=== PATIENT | male | born 2000 | race Hispanic/Latino ===

== ENCOUNTER 2024-05-14 04:51 | Emergency (ER) | payer BC ==
[~2024-05-14] VITALS: Ht 177.8 cm; Wt 74.8 kg
[2024-05-14 04:53] VITALS: BP 137/76; PULSE 102; RESP 18; TEMP 99.9; O2SAT 97
[2024-05-14 05:26] LABS: BASOPHIL % 0.4 % (0.2-1.2); EOSINOPHIL # 0.1 10^3/uL (0.0-0.2); EOSINOPHIL % 0.9 % (0.0-5.0); HEMATOCRIT(ML) 46.4 % (37.0-53.0); HEMOGLOBIN 15.8 g/dL (13.9-16.3); LYMPHOCYTES # 0.67 10^3/uL1 (1.0-4.8); MEAN CORP HGB 30.8 pg (26-34); MEAN CORP HGB CONCENTRATION 34.1 g/dL (33-36.5); MEAN CORP VOLUME 90.4 fL (78-100); MONOCYTES # 0.5 10^3/uL (0.3-0.8); MONOCYTES % 7.1 % (5.0-12.0); NEUTROPHIL # 6.2 10^3/uL (1.8-7.7); NEUTROPHILS % 82.5 % (41.0-85.0); PLATELET COUNT 212 10^3/uL (150-400); RED BLOOD CELL 5.13 10^6/uL (4.50-5.90); RED CELL DISTRIBUTION WIDTH 12.9 % (11.5-14.5); WHITE BLOOD CELL 7.5 10^3/uL (4.5-11.0)
[2024-05-14] MEDS ORDERED: ZOFRAN ONE (05:27)
[2024-05-14] MEDS ORDERED: NS 1000ML 1,000 ML ONE (05:27)
[2024-05-14] MEDS: NS 1000ML 1,000 ML IV ONE (05:31)
[2024-05-14] MEDS: ZOFRAN IV ONE (05:31)
[2024-05-14 05:32] LABS: +ADD MANUAL DIFF(NO CHRG) NO
[2024-05-14 05:45] LABS: ALBUMIN(ML) 4.1 g/dL (3.4-5.0); ALBUMIN/GLOBULIN RATIO 1.464; ANION GAP 15.2; BUN/CREATININE RATIO 11.34 (10.0-20.0); CALCIUM 8.5 mg/dL (8.4-10.5); CARBON DIOXIDE 27.2 mmol/L (20.0-32); CREATININE SERUM 0.97 mg/dL (0.59-1.40); EST GFR, NON-AA 95.9 (>/=60); POTASSIUM 3.4 mmol/L (3.6-5.2)
[2024-05-14 05:54] LABS: INFLUENZA VIRUS A ANTIGEN NEGATIVE (NEG); INFLUENZA VIRUS B ANTIGEN NEGATIVE (NEG)
[2024-05-14 06:17] VITALS: BP 120/78; PULSE 102; RESP 18; TEMP 99.9; O2SAT 97
== END 2024-05-14 06:20 | disposition home or self-care (01) ==
LOC: ER 04:51
DX: K52.9 Noninfective gastroenteritis and colitis, unspecified (principal); Z20.822 Contact with and (suspected) exposure to COVID-19
CPT/HCPCS: 99284; 96374; 96361; 87426; 80053; 85025; 36415; 85379; 84484; 87804 ×2; 83690; 93005; J7030; J2405; 80307